=== PATIENT | female | born 1980 | race Caucasian/White ===

== ENCOUNTER 2021-04-29 18:53 | Emergency (ER) | payer MEDICAID ==
[~2021-04-29] VITALS: Ht 152.4 cm; Wt 50.0 kg
[~2021-04-29 18:53] MED LIST: IBUP-2070 PO
[2021-04-29 19:42] LABS: BASOPHILS % (AUTO) 0.5 % (0.0-2.0); HEMATOCRIT 39.6 % (36-46); HEMOGLOBIN 13.2 g/dL (12.0-16.0); LYMPHOCYTES # (AUTO) 2.6 K/uL (1.0-4.8); LYMPHOCYTES % (AUTO) 25.3 % (22.0-44.0); MEAN CORPUSCULAR HEMOGLOBIN 28.6 pg (26.0-34.0); MEAN CORPUSCULAR HGB CONC 33.5 G/dL (31.0-37.0); MEAN CORPUSCULAR VOLUME 85 fL (80-100); MONOCYTES # (AUTO) 0.5 K/uL (0.1-1.0); MONOCYTES % (AUTO) 4.4 % (2.0-9.0); NEUTROPHILS # (AUTO) 7.1 K/uL (1.8-7.7); NEUTROPHILS % (AUTO) 67.8 % (40.0-70.0); PLATELET COUNT (AUTO) 210 K/uL (150-450); RED BLOOD CELL COUNT(AUTO) 4.63 MIL/uL (4.00-5.20); RED CELL DISTRIBUTION WIDTH 13.9 % (11.5-14.5)
[2021-04-29 19:51] LABS: ANION GAP 5 mmol/L (8-16); CALCIUM, TOTAL 8.6 mg/dL (8.8-10.5); CARBON DIOXIDE 29 mmol/L (22-29); CHLORIDE 103 mmol/L (98-107); CREATININE 0.67 mg/dL (0.60-1.30); GLOMERULAR FILTR. RATE CALC > 60 mL/min (>60); GLUCOSE,RANDOM 136 mg/dL (70-110); POTASSIUM 3.1 mmol/L (3.5-5.1); SODIUM SERUM 137 mmol/L (136-145); UREA NITROGEN, BLOOD 15 mg/dL (7-18)
[2021-04-29 19:57] LABS: ALANINE AMINOTRANSFERASE 17 U/L (12-78); ALBUMIN 3.7 g/dL (3.4-5.0); ALKALINE PHOSPHATASE 71 U/L (46-116); ASPARTATE AMINOTRANSFERASE 15 U/L (15-37); BILIRUBIN,TOTAL 0.6 mg/dL (0.1-1.0); TOTAL PROTEIN, SERUM 7.8 g/dL (6.4-8.2)
[2021-04-29] MEDS ORDERED: ACETAMINOPHEN 500 MG TABLET PO ONE (20:00)
[2021-04-29] MEDS ORDERED: ONDANSETRON HCL 4 MG TABLET PO ONE (20:00)
[2021-04-29] MEDS ORDERED: MECLIZINE HCL 25 MG TABLET PO ONE (20:00)
[2021-04-29] MEDS ORDERED: LORazepam 1 MG TABLET PO ONE (21:15)
[2021-04-29] MEDS ORDERED: POTASSIUM CHLORIDE 10% 40 MEQ/30 ML LIQUID UDCUP PO ONE (21:15)
[2021-04-29 23:55] VITALS: BP 132/72
== END 2021-04-30 02:31 | disposition home or self-care (01) ==
LOC: EMS 18:55
DX: G44.209 Tension-type headache, unspecified, not intractable (principal); F41.9 Anxiety disorder, unspecified; F43.20 Adjustment disorder, unspecified; E87.6 Hypokalemia; G47.00 Insomnia, unspecified
CPT/HCPCS: 36415; 80053; 84484; 84703; 85025; 93005; 99284; Q0162

== ENCOUNTER 2024-06-04 02:29 | Emergency (ER) | payer SELFPAY ==
[~2024-06-04] VITALS: Ht 152.4 cm; Wt 52.3 kg
[~2024-06-04 02:29] MED LIST changes: +IBUP-1492 PO; -IBUP-2070 PO
[2024-06-04 03:56] LABS: BASOPHILS % (AUTO) 1.1 % (0.0-2.0); HEMATOCRIT 39.1 % (36-46); HEMOGLOBIN 12.8 g/dL (12.0-16.0); LYMPHOCYTES # (AUTO) 3.8 K/uL (1.0-4.8); LYMPHOCYTES % (AUTO) 39.6 % (22.0-44.0); MEAN CORPUSCULAR HEMOGLOBIN 28.9 pg (26.0-34.0); MEAN CORPUSCULAR HGB CONC 32.8 G/dL (31.0-37.0); MEAN CORPUSCULAR VOLUME 88 fL (80-100); MONOCYTES # (AUTO) 0.5 K/uL (0.1-1.0); MONOCYTES % (AUTO) 5.1 % (2.0-9.0); NEUTROPHILS # (AUTO) 4.9 K/uL (1.8-7.7); NEUTROPHILS % (AUTO) 51.2 % (40.0-70.0); PLATELET COUNT (AUTO) 207 K/uL (150-450); RED BLOOD CELL COUNT(AUTO) 4.44 MIL/uL (4.00-5.20); RED CELL DISTRIBUTION WIDTH 13.6 % (11.5-14.5); WHITE BLOOD COUNT (AUTO) 9.6 K/uL (4.5-11.0)
[2024-06-04 04:08] LABS: ANION GAP 4 mmol/L (8-16); CALCIUM, TOTAL 8.8 mg/dL (8.8-10.5); CARBON DIOXIDE 31 mmol/L (22-29); CHLORIDE 101 mmol/L (98-107); CREATININE 0.67 mg/dL (0.60-1.30); GLOMERULAR FILTR. RATE CALC > 60 mL/min (>60); GLUCOSE,RANDOM 132 mg/dL (70-110); POTASSIUM 3.4 mmol/L (3.5-5.1); SODIUM SERUM 136 mmol/L (136-145); UREA NITROGEN, BLOOD 19 mg/dL (7-18)
[2024-06-04 04:17] VITALS: BP 122/84; PULSE 77; RESP 18; TEMP 96.8; O2SAT 98
[2024-06-04 04:19] LABS: HCG,QUANTITATIVE < 1 mIU/mL (0-6); LIPASE 59 U/L (16-77)
[2024-06-04 04:42] LABS: ALBUMIN 3.6 g/dL (3.4-5.0); BILIRUBIN,DIRECT 0.1 mg/dL (0.00-0.20); BILIRUBIN,TOTAL 0.5 mg/dL (0.1-1.0); TOTAL PROTEIN, SERUM 7.3 g/dL (6.4-8.2)
[2024-06-04] MEDS: SODIUM CHLORIDE 0.9% 1,000 ML IV ONE (04:49)
[2024-06-04] MEDS: KETOROLAC TROMETHAMINE 30 MG/ML VIAL IVP ONE (04:49)
[2024-06-04 05:10] LABS: APPEARANCE,URINE CLEAR (CLEAR); BILIRUBIN,URINE NEGATIVE (NEGATIVE); COLOR,URINE LIGHT YELLOW (YELLOW); GLUCOSE, URINE (UA) NEGATIVE (NEGATIVE); KETONES,URINE NEGATIVE (NEGATIVE); LEUKOCYTE ESTERASE ,URINE MODERATE (NEGATIVE); NITRATE,URINE NEGATIVE (NEGATIVE); OCCULT BLOOD,URINE TRACE (NEGATIVE); PH,URINE 6.5 (5.0-8.0); PROTEIN,URINE NEGATIVE (NEGATIVE); SPECIFIC GRAVITIY, URINE 1.021 (1.003-1.030); UROBILINOGEN,URINE <=1.0 mg/dL (<=1.0)
[2024-06-04 05:33] LABS: RBC,URINE 0-2 /HPF (0-2)
[2024-06-04 05:34] LABS: BACTERIA,URINE Moderate /HPF (None Seen); SQUAMOUS EPITHELIAL CELL,UR Moderate /LPF (None Seen)
[2024-06-04] MEDS ORDERED: CEPH-558 PO (06:18)
== END 2024-06-04 06:29 | disposition home or self-care (01) ==
LOC: EMS 02:31
DX: N39.0 Urinary tract infection, site not specified (principal)
CPT/HCPCS: 99283; 96374; 96361; 80048; 80076; 81001; 83690; 84702; 85025; 87077; 87086; 87186; 36415; J1885; J7030